=== PATIENT | male | born 1975 | race Caucasian/White ===

== ENCOUNTER 2017-08-27 14:29 | Emergency (ER) | payer SELFPAY ==
[2017-08-27 14:34] VITALS: TEMP 97.7
--- NOTE | 2017-08-27 14:46 | CPEKG ---
Heart Rate: 70 RR Interval: 857 P-R Interval: 164 QRSD Interval: 106 QT Interval: 424 QTC Interval: 458 P Gaastra: 60 QRS Gaastra: -7 T Wave Gaastra: 27 EKG Severity - NORMAL ECG - EKG Impression: SINUS RHYTHM Electronically Signed By: Deejay Flowers 27-Aug-2017 15:07:31
[2017-08-27] MEDS ORDERED: NS 1,000 ML IV ONE (15:10)
[2017-08-27] MEDS ORDERED: ASPIRIN 81 MG CHEWABLE TAB PO ONE (15:10)
--- NOTE | 2017-08-27 15:28 | EDPHY ---
H & P Stated Complaint: cp last 6-8 weeks with exertion/sob Time Seen by Provider: 08/27/17 14:51 HPI/ROS: CHIEF COMPLAINT: Chest tightness with exertion HISTORY OF PRESENT ILLNESS: Patient is a 41-year-old man who comes to the emergency department complaining of chest tightness and decreased exercise tolerance. He states that it 1st began 6 weeks ago and he thought that he was starting to get a viral syndrome. He had slight sinus congestion but his symptoms really improved after a day or 2 however his exercise tolerance has not. He states that he has some baseline tightness in his chest but then when he tries to exercise he becomes fatigued extremely easily and winded. He does have a history of asthma and states that this does not feel similar. He does not wheeze. He has not had a fever. His primary doctor prescribed him a Z-Luke in case he had a respiratory infection but these did not help. He has not had any travel, leg pain or swelling. No procedures. No hormones. He denies lightheadedness. REVIEW OF SYSTEMS: Constitutional: denies: chills, fever, recent illness, recent injury EENTM: denies: blurred vision, double vision, nose congestion Respiratory: denies: cough, shortness of breath Cardiac: See HPI Gastrointestinal/Abdominal: denies: abdominal pain, diarrhea, nausea, vomiting, blood streaked stools Genitourinary: denies: dysuria, frequency, hematuria, pain Musculoskeletal: denies: joint pain, muscle pain Skin: denies: lesions, rash, jaundice, bruising Neurological: denies: headache, numbness, paresthesia, tingling, dizziness, weakness Hematologic/Lymphatic: denies: blood clots, easy bleeding, easy bruising Immunologic/allergic: denies: HIV/AIDS, transplant EXAM: GENERAL: Well-appearing, well-nourished and in no acute distress. HEAD: Atraumatic, normocephalic. EYES: Pupils equal round and reactive to light, extraocular movements intact, sclera anicteric, conjunctiva are normal. ENT: TMs normal, nares patent, oropharynx clear without exudates. Moist mucous membranes. NECK: Normal range of motion, supple without lymphadenopathy or JVD. LUNGS: Breath sounds clear to auscultation bilaterally and equal. No wheezes rales or rhonchi. HEART: Regular rate and rhythm without murmurs, rubs or gallops. ABDOMEN: Soft, nontender, normoactive bowel sounds. No guarding, no rebound. No masses appreciated. BACK: No CVA tenderness, no spinal tenderness, step-offs or deformities EXTREMITIES: Normal range of motion, no pitting or edema. No clubbing or cyanosis. NEUROLOGICAL: Cranial nerves II through XII grossly intact. Normal speech, normal gait. 5/5 strength, normal movement in all extremities, normal sensation PSYCH: Normal mood, normal affect. SKIN: Warm, dry, normal turgor, no visible rashes or lesions. Source: Patient Exam Limitations: No limitations - Personal History Current Tetanus/Diphtheria Vaccine: Yes - Medical/Surgical History Hx Asthma: Yes Hx Chronic Respiratory Disease: No Hx Diabetes: No Hx Cardiac Disease: No Hx Renal Disease: No Hx Cirrhosis: No Hx Alcoholism: No Hx HIV/AIDS: No Hx Splenectomy or Spleen Trauma: No Other PMH: asthma - Social History Smoking Status: Never smoked Alcohol Use: Sober Drug Use: None Constitutional: Initial Vital Signs Temperature (C) 36.5 C 08/27/17 14:32 Heart Rate 76 08/27/17 14:32 Respiratory Rate 18 08/27/17 14:32 Blood Pressure 131/83 H 08/27/17 14:32 O2 Sat (%) 95 08/27/17 14:32 O2 Delivery Mode Room Air Allergies/Adverse Reactions: No Known Allergies Allergy (Unverified 08/27/17 14:31) Home Medications: Medication Instructions Recorded Albuterol 08/27/17 Symbicort 160-4.5 Mcg Inh (*) 08/27/17 Medical Decision Making - Diagnostics Imaging Results: Imaging Impressions Chest X-Ray 08/27/17 15:10 Impression: Suspect airways disease. No pneumonia. Imaging: Discussed imaging studies w/ overage shortage and damage clerk Radiologist ED Course/Re-evaluation: We discussed the patient's test results which are reassuring. We discussed treatment for bronchitis. He has already been through Z-Luke with minimal improvement. He has stopped his albuterol because he is worried about it causing his heart to race. I encouraged him to take Mucinex and possibly albuterol as needed. He understands and agrees with this plan. We also discussed indications for return Differential Diagnosis: Partial list of the Differential diagnosis considered include but were not limited to; bronchitis, pneumonia, PE and although unlikely based on the history and physical exam, I also considered acute coronary disease, dissection. I discussed these differential diagnoses and the plan with the patient as well as the usual and expected course. The patient understands that the diagnosis is provisional and that in medicine we are not always correct and that further workup is often warranted. Usual and customary warnings were given. All of the patient's questions were answered. The patient was instructed to return to the emergency department should the symptoms at all worsen or return, otherwise to followup with the physician as we discussed. - Data Points Laboratory Results: Laboratory Results 08/27/17 15:30 08/27/17 15:30 08/27/17 08/27/17 08/27/17 15:30 15:30 15:30 WBC 9.81 10^3/uL H 10^3/uL (3.80-9.50) RBC 5.58 10^6/uL 10^6/uL (4.40-6.38) Hgb 17.1 g/dL g/dL (13.7-17.5) Hct 49.5 % % (40.0-51.0) MCV 88.7 fL fL (81.5-99.8) MCH 30.6 pg pg (27.9-34.1) MCHC 34.5 g/dL g/dL (32.4-36.7) RDW 13.2 % % (11.5-15.2) Plt Count 261 10^3/uL 10^3/uL (150-400) MPV 10.1 fL fL (8.7-11.7) Neut % (Auto) 65.3 % % (39.3-74.2) Lymph % (Auto) 23.1 % % (15.0-45.0) [place] % (Auto) 8.5 % % (4.5-13.0) Eos % (Auto) 2.1 % % (0.6-7.6) Baso % (Auto) 0.5 % % (0.3-1.7) Nucleat RBC Rel Count 0.0 % % (0.0-0.2) Absolute Neuts (auto) 6.40 10^3/uL 10^3/uL (1.70-6.50) Absolute Lymphs (auto) 2.27 10^3/uL 10^3/uL (1.00-3.00) Absolute Monos (auto) 0.83 10^3/uL H 10^3/uL (0.30-0.80) Absolute Eos (auto) 0.21 10^3/uL 10^3/uL (0.03-0.40) Absolute Basos (auto) 0.05 10^3/uL 10^3/uL (0.02-0.10) Absolute Nucleated RBC 0.00 10^3/uL 10^3/uL (0-0.01) Immature Gran % 0.5 % % (0.0-1.1) Immature Gran # 0.05 10^3/uL 10^3/uL (0.00-0.10) PT 13.3 SEC SEC (12.0-15.0) INR 0.99 (0.83-1.16) APTT 24.0 SEC SEC (23.0-38.0) D-Dimer < 0.27 ug/mLFEU ug/mLFEU (0.00-0.50) Sodium 143 mEq/L mEq/L (135-145) Potassium 4.4 mEq/L mEq/L (3.5-5.2) Chloride 106 mEq/L mEq/L (97-110) Carbon Dioxide 23 mEq/l mEq/l (22-31) Anion Gap 14 mEq/L mEq/L (8-16) BUN 20 mg/dL mg/dL (7-23) Creatinine 0.9 mg/dL mg/dL (0.7-1.3) Estimated GFR > 60 Glucose 96 mg/dL mg/dL (70-100) Calcium 9.8 mg/dL mg/dL (8.5-10.4) Troponin I < 0.012 ng/mL ng/mL (0.000-0.034) Medications Given: Discontinued Medications Aspirin (Aspirin) 324 mg PO EDNOW ONE Stop: 08/27/17 15:11 Last Admin: 08/27/17 15:49 Dose: 324 mg Sodium Chloride (Ns) 1,000 mls @ 0 mls/hr IV EDNOW ONE; Wide Open PRN Reason: Protocol Stop: 08/27/17 15:11 Last Admin: 08/27/17 16:33 Dose: Not Given Departure - Departure Disposition: Home, Routine, Self-Care Clinical Impression: Bronchitis Condition: Fair Instructions: Acute Bronchitis (ED) Referrals: NONE *PRIMARY CARE P,. [Primary Care Provider] - As per Instructions Edgardo Ardon MD [place] [place] - As per Instructions
[2017-08-27 15:46] LABS: PLATELET COUNT 261 10^3/uL (150-400)
[2017-08-27 15:56] LABS: INR 0.99 (0.83-1.16); PROTIME(PATIENT) 13.3 SEC (12.0-15.0)
[2017-08-27 16:33] VITALS: BP 127/76; PULSE 72; RESP 16; O2SAT 96
== END 2017-08-27 16:34 | disposition home or self-care (01) ==
DX: J40 Bronchitis, not specified as acute or chronic (principal)

== ENCOUNTER → 2018-01-03 | Outpatient (CLI) | payer OTHER | LOC: BMCIMAGING 16:23 | PROVIDERS: ATTEND Emergency Medicine | DX: S99.911A Unspecified injury of right ankle, initial encounter (principal) ==